=== PATIENT | female | born 1975 | race Caucasian/White ===

== ENCOUNTER 2017-03-03 09:37 | Emergency (ER) | payer BC ==
[~2017-03-03] VITALS: Ht 157.5 cm; Wt 83.0 kg
[2017-03-03 09:42] VITALS: Ht 157.5 cm; Wt 83.0 kg
--- NOTE | 2017-03-03 10:43 | ERD ---
ER Documentation Chief Complaint Date/Time DATE: 03/03/17 TIME: 10:40 Chief Complaint R FOOT IN PAIN AND PURPLE HPI This is a 41-year-old female presenting to emergency department for right foot pain starting yesterday. Patient states she hit her foot on her coffee table yesterday and immediately started having pain to right foot especially fourth digit. Denies numbness or tingling. No loss of sensation. Patient has ecchymosis. No swelling. Patient took ibuprofen yesterday without relief of symptoms. ROS All systems reviewed and are negative except as per history of present illness. Medications Home Meds Active Scripts Hydrocodone/Acetaminophen ([place] 5-325 Tablet) 1 Each Tablet, 1 TAB PO Q6H Y for PAIN, #7 TAB Prov:ELVIS ARCHULETA NP 03/03/17 Ibuprofen* (Motrin*) 600 Mg Tab, 600 MG PO Q6, #20 TAB Prov:ELVIS ARCHULETA NP 03/03/17 Allergies Allergies: Coded Allergies: No Known Allergy (Unverified , 03/03/17) PMhx/Soc Medical and Surgical Hx: pt denies Medical Hx, pt denies Surgical Hx History of Surgery: No Anesthesia Reaction: No Hx Neurological Disorder: No Hx Respiratory Disorders: No Hx Cardiac Disorders: No Hx Psychiatric Problems: No Hx Miscellaneous Medical Probl: No Hx Alcohol Use: No Hx Substance Use: No Hx Tobacco Use: No Smoking Status: Never smoker Physical Exam Vitals Vital Signs Date Time Temp Pulse Resp B/P Pulse Ox O2 Delivery O2 Flow Rate FiO2 03/03/17 12:00 98.0 76 18 132/78 99 Room Air 03/03/17 09:42 98.0 99 18 134/88 99 Physical Exam Const: No acute distress, alert Head: Atraumatic Eyes: Normal Conjunctiva ENT: Normal External Ears, Nose and Mouth. Neck: Full range of motion..~ No meningismus. Resp: Clear to auscultation bilaterally Cardio: Regular rate and rhythm, no murmurs Abd: Soft, non tender, non distended. Normal bowel sounds Skin: No petechiae or rashes Back: No midline or flank tenderness Ext: No cyanosis, or edema Neur: Awake and alert Psych: Normal Mood and Affect Results 24 hrs Current Medications Medications (Trade) Dose Ordered Sig/Duane Route PRN Reason Start Time Stop Time Status Last Admin Dose Admin Ibuprofen (Motrin) 600 mg ONCE ONCE PO 03/03/17 11:00 03/03/17 11:01 DC 03/03/17 10:46 Procedures/MDM DIAGNOSTIC IMAGING REPORT Patient: BRITTNEE DANIELS : 1975 Age: 41 Sex: F MR #: [id number] DOS: 03/03/17 1038 Ordering MD: ELVIS ARCHULETA NP Location: [facility] Room/Bed: PROCEDURE: XR Foot. CLINICAL INDICATION: Right foot pain, injury TECHNIQUE: 3 views of the right foot are available for review. COMPARISON: None available FINDINGS: There is an oblique extraarticular fourth proximal phalanx fracture, minimally- displaced. There is a cortical irregularity between the dorsal aspect of the first and second metatarsal bases may reflect an os intermetatarseum or osteochondroma but is nonspecific. Alignment is normal. Joint spaces are preserved. There is mild soft tissue swelling of the fourth digit. IMPRESSION: 1. Oblique minimally-displaced extraarticular fourth proximal phalanx fracture. 2. Nonspecific cortical irregularity along the dorsal aspect of the mid foot between the first and second metatarsal bases, query os intermetatarseum or osteochondroma. However, if there is mid foot pain and concern for fracture at this location, recommend CT for further evaluation. MDM: This is a 41-year-old female presenting to the emergency department for right foot especially fourth digit pain after injury. Patient hit her foot against a coffee table yesterday. Patient given ibuprofen 600 mg p.o. while in the ED. X-ray right foot reviewed by radiologist as Oblique minimally- displaced extraarticular fourth proximal phalanx fracture. Consulted Dr. Santos who agrees with my plan of care. Edgard taping was done per staff electrical engineer of 3rd and 4th digits. An ortho shoe was applied. Patient remains neurovascularly intact. Patient diagnosis is proximal phalanx fracture. Low suspicion for compartment syndrome. Patient is appropriate for outpatient management will be given prescription for ibuprofen and [place]. Follow-up with PCP or orthopedic physician in the next 2- 3 days for reassessment. Resources provided. Patient provided with a printout of x-ray exam as well as a CD of x-ray images. Return to ED for any high fever , chest pain, difficulty breathing, shortness breath, wheezing, vomiting, diarrhea, abdominal pain or any new or worsening symptoms. Patient verbalizes understanding. All questions answered at discharge. Departure Diagnosis: Primary Impression: Injury of foot Encounter type: initial encounter Laterality: right Qualified Code: S99.921A - Injury of foot, right, initial encounter Condition: ELVIS Mandel NP Mar 03, 2017 10:42
[2017-03-03] MEDS ORDERED: IBUPROFEN 600 MG TAB PO ONE (11:00)
--- NOTE | 2017-03-03 11:09 | RADRPT ---
PROCEDURE: XR Foot. CLINICAL INDICATION: Right foot pain, injury TECHNIQUE: 3 views of the right foot are available for review. COMPARISON: None available FINDINGS: There is an oblique extraarticular fourth proximal phalanx fracture, minimally-displaced. There is a cortical irregularity between the dorsal aspect of the first and second metatarsal bases may reflect an os intermetatarseum or osteochondroma but is nonspecific. Alignment is normal. Joint spaces are preserved. There is mild soft tissue swelling of the fourth digit. IMPRESSION: 1. Oblique minimally-displaced extraarticular fourth proximal phalanx fracture. 2. Nonspecific cortical irregularity along the dorsal aspect of the mid foot between the first and s econd metatarsal bases, query os intermetatarseum or osteochondroma. However, if there is mid foot pain and concern for fracture at this location, recommend CT for further evaluation. RPTAT: [facility]U .Gee Zarate MD, MD Date Time Electronically viewed and signed by .Gee Zarate MD, on 03/03/2017 11:09 .K/
[2017-03-03] MEDS ORDERED: IBUP-1542 PO (11:45)
[2017-03-03] MEDS ORDERED: HYDR-906 PO (11:45)
[2017-03-03 12:00] VITALS: BP 132/78; PULSE 76; RESP 18; TEMP 98
== END 2017-03-03 12:01 | disposition home or self-care (01) ==
LOC: FTE 09:37
DX: S92.511A Displaced fracture of proximal phalanx of right lesser toe(s), initial encounter for closed fracture (principal); W22.8XXA Striking against or struck by other objects, initial encounter; Y92.9 Unspecified place or not applicable
CPT/HCPCS: 73630; Z7610

== ENCOUNTER 2018-03-16 16:18 | Emergency (ER) | END 2018-03-16 18:04 | disposition home or self-care (01) ==

== ENCOUNTER 2018-06-27 03:47 | Emergency (ER) | END 2018-06-27 04:31 | disposition home or self-care (01) ==

== ENCOUNTER 2018-12-15 16:47 | Emergency (ER) | payer BC ==
[~2018-12-15] VITALS: Ht 162.6 cm; Wt 68.7 kg
[~2018-12-15 16:47] MED LIST: AMOX500C2 PO; BEN25 PO; CEPH-443 PO; FAMO-96 PO; HYDR-4011 PO; IBUP-1542 PO; MED4DP PO
[2018-12-15 16:59] VITALS: BP 130/88; PULSE 112; RESP 18; Ht 162.6 cm; Wt 68.7 kg
[2018-12-15] MEDS ORDERED: ACETAMINOPHEN 500 MG TAB PO STA (17:54)
[2018-12-15] MEDS ORDERED: IBUPROFEN 600 MG TAB PO ONE (18:00)
[2018-12-15] MEDS ORDERED: DEXAMETHASONE 10 MG/ML 1 ML INJ IM ONE (18:00)
[2018-12-15] MEDS ORDERED: IBUP800T48 PO (19:28)
[2018-12-15] MEDS ORDERED: ACET500C5 PO (19:28)
[2018-12-15] MEDS ORDERED: OSEL75CA23 PO (19:28)
--- NOTE | 2018-12-16 17:08 | ERD ---
ER Documentation Chief Complaint Chief Complaint fever , chest congestion x 1 day , seasonal allergies HPI 43-year-old female coming in today with Chief Complaint: Cold symptoms History of Present Illness: Patient coming in today with complaint of cold symptoms for 1 day. Associated symptoms include intermittent fever, chest congestion, fatigue, cough, runny nose. Patient reports that she usually has exacerbation from her allergies and the symptoms currently feel like her allergies are flaring up. Patient reports recent flareup being for the past 3 days. Patient reports use of Benadryl at 11 AM today and 2:45 PM today without any relief. Denies sick contacts. Tolerating p.o. fluids and food without difficulty Review of systems: All systems were reviewed and are negative except for what is indicated in the history of present illness. Past Medical History: Negative for hypertension, diabetes or other medical problems Social History: Patient denies tobacco, alcohol, elicit drug use Medications: None Allergies: NKDA Social Concerns: Denies ROS All systems reviewed and are negative except as per history of present illness. Medications Home Meds Active Scripts Ibuprofen* (Motrin*) 800 Mg Tab, 800 MG PO Q6H PRN for PAIN AND OR ELEVATED TEMP, #30 TAB Prov:HOMERO MICHAELS NP 12/15/18 Acetaminophen* (Tylophen*) 500 Mg Capsule, 2 CAP PO Q8H PRN for PAIN AND OR MEERA VATED TEMP, #20 CAP Prov:HOMERO IMCHAELS V PLANT SAFETY ENGINEER 12/15/18 Oseltamivir Phosphate* (Tamiflu*) 75 Mg Capsule, 75 MG PO BID for influenza virus for 5 Days, #10 CAP Prov:HOMERO MICHAELS NP 12/15/18 Ibuprofen* (Motrin*) 600 Mg Tab, 600 MG PO Q6H PRN for PAIN AND OR ELEVATED TEMP, #30 TAB Prov:SATISH GANDHI PLANT SAFETY ENGINEER 06/27/18 Amoxicillin* (Amoxicillin*) 500 Mg Cap, 500 MG PO TID for 10 Days, CAP Prov:SATISH GANDHI PLANT SAFETY ENGINEER 06/27/18 Cephalexin* (Keflex*) 500 Mg Capsule, 500 MG PO BID for 7 Days, #14 CAP Prov:MATT,CATRINA C 03/16/18 Famotidine* (Pepcid*) 20 Mg Tablet, 20 MG PO BID for 4 Days, TAB Prov:MATTCATRINA C 03/16/18 Diphenhydramine Hcl* (Benadryl*) 25 Mg Cap, 25 MG PO Q6, #30 CAP Prov:CATRINA GUTIERREZ 03/16/18 Methylprednisolone* (Medrol* DOSE PACK) 4 Mg/Dose-Pack Tab.ds.pk, 4 MG PO . DIRECTED for 6 Days, PACKET Prov:CATRINA GUTIERREZ 03/16/18 Hydrocodone/Acetaminophen ([place] 5-325 Tablet) 1 Each Tablet, 1 TAB PO Q6H PRN for PAIN, #7 TAB Prov:ELVIS ARCHULETA NP 03/03/17 Ibuprofen* (Motrin*) 600 Mg Tab, 600 MG PO Q6, #20 TAB Prov:ELVIS ARCHULETA NP 03/03/17 Allergies Allergies: Coded Allergies: No Known Allergy (Unverified , 03/03/17) PMhx/Soc History of Surgery: No Anesthesia Reaction: No Hx Neurological Disorder: No Hx Respiratory Disorders: No Hx Cardiac Disorders: No Hx Psychiatric Problems: No Hx Miscellaneous Medical Probl: No Hx Alcohol Use: No Hx Substance Use: No Hx Tobacco Use: No Smoking Status: Never smoker FmHx Family History: No diabetes, No coronary disease Physical Exam Vitals Vital Signs Date Temp Pulse Resp B/P (MAP) Pulse Ox O2 O2 Flow FiO2 Time Delivery Rate 12/15/18 98.9 19:45 12/15/18 99.8 18:00 12/15/18 102.7 112 18 130/88 97 16:59 (102) Physical Exam Const: No acute distress Head: Atraumatic Eyes: Normal Conjunctiva ENT: Normal External Ears, Nose and Mouth. Nasal turbinates swollen, nasal mucosa with erythema. Erythematous pharynx. Neck: Full range of motion. No meningismus. Resp: Clear to auscultation bilaterally Cardio: Regular rhythm, no murmurs. Tachycardia at 110. Abd: Soft, non tender, non distended. Normal bowel sounds Skin: No petechiae or rashes Back: No midline or flank tenderness Ext: No cyanosis, or edema Neur: Awake and alert Psych: Normal Mood and Affect Results 24 hrs Current Medications Medications Dose Sig/Duane Start Time Status Last (Trade) Ordered Route PRN Stop Time Admin Dose Reason Admin 1,000 mg ONCE STAT 12/15/18 DC 12/15/18 Acetaminophen PO 17:54 18:03 (Tylenol 12/15/18 17:55 Tab) Ibuprofen 600 mg ONCE ONCE 12/15/18 DC 12/15/18 (Motrin) PO 18:00 18:04 12/15/18 18:01 6 mg ONCE ONCE 12/15/18 DC 12/15/18 Dexamethasone IM 18:00 18:04 (Decadron) 12/15/18 18:01 Procedures/MDM ED course includes a thorough examination and history. ED course includes lab testing; influenza. ED course includes medication; acetaminophen and ibuprofen for antipyretic, dexamethasone for pharyngeal erythema Low suspicion for life-threatening medical emergency influenza Otherwise healthy patient presenting with constellation of symptoms likely representing uncomplicated [x] as characterized by history, physical exam fi ndings,lab findings. Positive influenza A. No respiratory distress, otherwise relatively well appearing and nontoxic. Patient educated on diagnoses, prescriptions (Tamiflu and antipyretics), follow- up care, return precautions. Strict return precautions given for worsening condition; questions answered discharge. Disposition for discharge with followup in 2 days with PCP/clinic for reevaluation of symptoms. Departure Diagnosis: Primary Impression: Influenza A Condition: Stable Patient Instructions: Influenza (Adult) Referrals: COMMUNITY CLINICS YOU HAVE RECEIVED A MEDICAL SCREENING EXAM AND THE RESULTS INDICATE THAT YOU DO NOT HAVE A CONDITION THAT REQUIRES URGENT TREATMENT IN THE EMERGENCY DEPARTMENT. FURTHER EVALUATION AND TREATMENT OF YOUR CONDITION CAN WAIT UNTIL YOU ARE SEEN IN YOUR DOCTORS OFFICE WITHIN THE NEXT 1-2 DAYS. IT IS YOUR RESPONSIBILITY TO MAKE AN APPOINTMENT FOR FOLOW-UP CARE. IF YOU HAVE A PRIMARY DOCTOR --you should call your primary doctor and schedule an appointment IF YOU DO NOT HAVE A PRIMARY DOCTOR YOU CAN CALL OUR PHYSICIAN REFERRAL HOTLINE AT IF YOU CAN NOT AFFORD TO SEE A PHYSICIAN YOU CAN CHOSE FROM THE FOLLOWING [facility] [address] [facility] [address] [facility] [address] [facility] [address] [facility] [address] [facility]. [employer] [facility] [address] [facility]. [facility] YOU HAVE RECEIVED A MEDICAL SCREENING EXAM AND THE RESULTS INDICATE THAT YOU DO NOT HAVE A CONDITION THAT REQUIRES URGENT TREATMENT IN THE EMERGENCY DEPARTMENT. FURTHER EVALUATION AND TREATMENT OF YOUR CONDITION CAN WAIT UNTIL YOU ARE SEEN IN YOUR DOCTORS OFFICE WITHIN THE NEXT 1-2 DAYS. IT IS YOUR RESPONSIBILITY TO MAKE AN APPOINTMENT FOR FOLOW-UP CARE. IF YOU HAVE A PRIMARY DOCTOR --you should call your primary doctor and schedule and appointment IF YOU DO NOT HAVE A PRIMARY DOCTOR YOU CAN CALL OUR PHYSICIAN REFERRAL HOTLINE AT . IF YOU CAN NOT AFFORD TO SEE A PHYSICIAN YOU CAN CHOSE FROM THE FOLLOWING [facility]: [facility] [address] [place] [address] [facility] [address] [place] [address] [facility] [address] [place] [address] Additional Instructions: Call your primary care doctor TOMORROW for an appointment during the next 2-3 days.See the doctor sooner or return here if your condition worsens before your appointment time. The Tamiflu medication will not make the flu go away. But it should decrease the severity of the symptoms and decrease the length of having the flu. If you develop signs of respiratory distress, altered mental status, nausea/vomiting return to ER. HOMERO MICHAELS NP Dec 16, 2018 17:08
== END 2018-12-15 19:45 | disposition home or self-care (01) ==
LOC: FTE 16:47
DX: J10.1 Influenza due to other identified influenza virus with other respiratory manifestations (principal)
CPT/HCPCS: 87400; 96372; J1100; Z7502; Z7610